=== PATIENT | male | born 1995 | race Hispanic/Latino ===

== ENCOUNTER 2017-10-07 22:43 | Emergency (ER) | payer SELFPAY ==
[2017-10-08] MEDS ORDERED: PHENYLEPHRINE 0.5% NOSE 15ML NAS ONE (00:34)
[2017-10-08] MEDS ORDERED: SILVER NITRATE 1 APPL TOP ONE (00:47)
--- NOTE | 2017-10-08 01:31 | ER ---
Nurse's Notes [facility] Name: Mesfin Vanegas III Age: 21 yrs Sex: Male : 1995 Arrival Date: 10/07/2017 Time: 22:51 Bed 10 Private MD: Diagnosis: Epistaxis Presentation: 10/07 23:13 Presenting complaint: Patient states: MY NOSE BLED FOR TWENTY MINUTES YESTERDAY AND FOR bp LIKE AN HOUR TODAY. Transition of care: patient was not received from another setting of care. Onset of symptoms was October 06, 2017. Risk Assessment: Do you want to hurt yourself or someone else? Patient reports no desire to harm self or others. Initial Sepsis Screen: Does the patient meet any 2 criteria? No. Patient's initial sepsis screen is negative. Does the patient have a suspected source of infection? No. Patient's initial sepsis screen is negative. Note BLEEDING NOW RESOLVED. Care prior to arrival: None. 23:13 Method Of Arrival: Ambulatory bp 23:13 Acuity: LOBITO 5 bp Triage Assessment: 23:14 General: Appears in no apparent distress. comfortable, Behavior is calm, cooperative, bp appropriate for age. Pain: Denies pain. Historical: - Allergies: 23:14 No Known Allergies; bp - Home Meds: 23:14 None [Active]; bp - PMHx: 23:14 None; bp - Immunization history:: Adult Immunizations up to date. - Social history:: Smoking status: Patient uses tobacco products, denies chronic smoking, but will smoke occasionally, Patient uses alcohol, occasionally. - Ebola Screening: : Patient negative for fever greater than or equal to 101.5 degrees Fahrenheit, and additional compatible Ebola Virus Disease symptoms Patient denies exposure to infectious person Patient denies travel to an Ebola-affected area in the 21 days before illness onset No symptoms or risks identified at this time. Screenin/01 00:06 Abuse screen: Denies threats or abuse. Denies injuries from another. Nutritional bp screening: No deficits noted. Tuberculosis screening: No symptoms or risk factors identified. Fall Risk None identified. Assessment: 00:03 Reassessment: 21YO HM P/W INTERMITTENT EPISTAXIS SINCE Y/D. REPORTS TWO OCCURRENCES, bp RESOLVED AT THIS TIME. 01:32 Reassessment: PT D/C HOME AMBULATORY WITH FAMILY, DX WITH EPISTAXIS. bp Vital Signs: 10/07 23:14 BP 144 / 86; Pulse 67; Resp 14; Temp 97.2; Pulse Ox 99% ; Weight 68.04 kg; Height 5 ft. bp 3 in. (160.02 cm); 10/08 01:29 BP 137 / 79; Pulse 65; Resp 14; Pulse Ox 99% ; bp 10/07 23:14 Body Mass Index 26.57 (68.04 kg, 160.02 cm) bp ED Course: 10/07 22:51 Patient arrived in ED. es 23:14 Triage completed. bp 23:14 Arm band placed on. bp 23:35 Juliette Denton NP is PHCP. rh1 23:35 Landry Soto MD is Attending Physician. rh1 23:51 Remy Tomas, RN is Primary Nurse. bp 10/08 00:06 Patient has correct armband on for positive identification. Bed in low position. Call bp light in reach. Adult w/ patient. 01:29 No provider procedures requiring assistance completed. Patient did not have IV access bp during this emergency room visit. 01:30 Sophia Miranda MD is Referral Physician. rh1 Administered Medications: 01:31 Drug: Dixon-Synephrine [place] 0.5 % 1 sprays {Note: AT B/S FOR PROVIDER.} Route: bp Intranasal; Site: both nares; 01:32 Follow up: Response: Marked relief of symptoms bp Outcome: 01:30 Discharge ordered by . rh1 01:33 Discharged to home ambulatory, with family. bp 01:33 Condition: stable 01:33 Discharge instructions given to patient, family, Instructed on discharge instructions, follow up and referral plans. medication usage, Demonstrated understanding of instructions, follow-up care, medications. 01:50 Patient left the ED. bp Signatures: Farrah Glaser Rachel, JOSE LUIS L[employer] CUTTER rh1 Remy Tomas, RN RN bp
--- NOTE | 2017-10-08 01:31 | EDPHYS ---
Physician Documentation [facility] Name: Mesfin Vanegas III Age: 21 yrs Sex: Male : 1995 Arrival Date: 10/07/2017 Time: 22:51 Bed 10 Private MD: ED Physician Landry Soto HPI: 10/07 23:53 This 21 yrs old Male presents to ER via Ambulatory with complaints of Nose rh1 Bleed. 23:53 The patient presents with a nose bleed, that is apparently anterior, from both nares, rh1 occurred from an unknown cause, that is continuous moderate amount with clots, causative factors include: unknown, and the bleeding resolved prior to arrival. Onset: The symptoms/episode began/occurred today. Modifying factors: The symptoms are alleviated by pressure, the symptoms are aggravated by nothing. Associated signs and symptoms: Loss of consciousness: the patient experienced no loss of consciousness, Pertinent negatives: blurred vision, chest pain, fever, lightheadedness, rhinorrhea. Severity of symptoms: At their worst the symptoms were moderate in the emergency department the symptoms have improved. The patient has not experienced similar symptoms in the past. The patient has not recently seen a physician. Pt. reports he has had nosebleeds x 2 today. Initially began at right, and then both sides had bleeding. This am episode resolved with pressure, after approx. 20 min, and this evening resolved in approx. 1 hour, with pressure. Denies any other episodes of bleeding, denies easy bleeding. He did have facial trauma approx. 3 months ago in [place], "with broken bones in his face.". Historical: - Allergies: 23:14 No Known Allergies; bp - Home Meds: 23:14 None [Active]; bp - PMHx: 23:14 None; bp - Immunization history:: Adult Immunizations up to date. - Social history:: Smoking status: Patient uses tobacco products, denies chronic smoking, but will smoke occasionally, Patient uses alcohol, occasionally. - Ebola Screening: : Patient negative for fever greater than or equal to 101.5 degrees Fahrenheit, and additional compatible Ebola Virus Disease symptoms Patient denies exposure to infectious person Patient denies travel to an Ebola-affected area in the 21 days before illness onset No symptoms or risks identified at this time. ROS: 23:53 Constitutional: Negative for fever rh1 23:53 ENT: Positive for nose bleed, Negative for nasal discharge, rhinorrhea, sinus congestion. 23:53 Abdomen/GI: Negative for nausea and vomiting. 23:53 Skin: Negative for pallor. 23:53 Neuro: Negative for headache, syncope, near syncope. Exam: 23:53 Constitutional: This is a well developed, well nourished patient who is awake, alert, rh1 and in no acute distress. Head/Face: Normocephalic, atraumatic. 23:53 Chest/axilla: Normal chest wall appearance and motion. Nontender with no deformity. No lesions are appreciated. Cardiovascular: Regular rate and rhythm with a normal S1 and S2. No gallops, murmurs, or rubs. No JVD. No pulse deficits. Respiratory: Lungs have equal breath sounds bilaterally, clear to auscultation. No rales, rhonchi or wheezes noted. No increased work of breathing. Abdomen/GI: Soft, non-tender, with normal bowel sounds. No distension. No guarding or rebound. No evidence of tenderness throughout. Skin: Warm, dry with normal turgor. Normal color with no rashes, no lesions, and no evidence of cellulitis. 23:53 Eyes: Pupils: no acute changes, normal size, normal reaction to light, equal, right pupil is approximately 3 mm(s), left pupil is approximately 3 mm(s), Extraocular movements: intact throughout. 23:53 ENT: External ear(s): are unremarkable, no pain with movement, Ear canal(s): are normal, clear, no cerumen impaction, no erythema, no foreign body, no purulent discharge, no swelling, TM's: are normal, no evidence of bulging, no dullness, no erythema, no fluid levels, no hemotympanum, no rupture, normal bony landmarks, Nose: External nose: no obvious acute abnormality, with swelling, deformity, Nasal septum: is midline, superficial vessels bilaterally, right > left , Nasal mucosa: dry, erythematous, Turbinates: are swollen bilaterally, bleeding, no active bleeding at this time. Mouth: is normal, no lip abnormalities, no mucosal abnormalities, Posterior pharynx: is normal, airway is patent, no erythema, no exudate, no peritonsilar mass, no pooling of secretions, no swelling, normal tonsil apperance, normal sized tonsils, normal uvula appearance, normal uvula size, no bleeding noted. 23:53 Neuro: Orientation: is normal, to person, place \\T\\ time. Mentation: is normal, lucid, able to follow commands, Motor: is normal, moves all fours, strength is 5/5 in all extremities, Sensation: is normal, no obvious gross deficits, Gait: is steady, at a normal pace, without difficulty. Vital Signs: 23:14 BP 144 / 86; Pulse 67; Resp 14; Temp 97.2; Pulse Ox 99% ; Weight 68.04 kg; Height 5 ft. bp 3 in. (160.02 cm); 10/08 01:29 BP 137 / 79; Pulse 65; Resp 14; Pulse Ox 99% ; bp 10/07 23:14 Body Mass Index 26.57 (68.04 kg, 160.02 cm) bp Procedures: 10/07 23:53 Epistaxis treatment: A moderate amount of bleeding noted from Treated using with rh1 initial examination no active bleeding noted; upon clearing bloody mucous from right nare, superficial vessels at septum began bleeding; Dixon-Synephrine nasal spray into nares, and direct pressure applied for 15 minutes, and no further bleeding noted; right septum cauterized without complication. MDM: 23:53 Patient medically screened. [facility] 10/08 01:30 Data reviewed: vital signs, nurses notes, and as a result, I will discharge patient. rh1 Data interpreted: Pulse oximetry: on room air is 99 %. Interpretation: normal. Counseling: I had a detailed discussion with the patient and/or guardian regarding: the historical points, exam findings, and any diagnostic results supporting the discharge/admit diagnosis, the need for outpatient follow up, an ENT specialist, to return to the emergency department if symptoms worsen or persist or if there are any questions or concerns that arise at home. Administered Medications: 01:31 Drug: Dixon-Synephrine [place] 0.5 % 1 sprays {Note: AT B/S FOR PROVIDER.} Route: bp Intranasal; Site: both nares; 01:32 Follow up: Response: Marked relief of symptoms bp Disposition: 10/08/17 01:30 Discharged to Home. Impression: Epistaxis. - Condition is Stable. - Discharge Instructions: Nosebleed. - Medication Reconciliation Form, Thank You Letter, Antibiotic Education, Prescription Opioid Use form. - Follow up: Sophia Miranda MD; When: 10 - 14 days; Reason: If symptoms return, Further diagnostic work-up, Recheck today's complaints, Continuance of care. Follow up: Emergency Department; When: As needed; Reason: Fever > 102 F, If symptoms return, Trouble breathing, Worsening of condition. - Problem is new. - Symptoms are resolved. - Notes: 1. Sneeze with your mouth open. 2. Avoid lifting heavy objects, straining. 3. Apply nasal saline spray to nose every 2 hours while awake x 2 weeks. 4. Apply antibiotic ointment to both sides of nose 2 - 3 times daily. 5. If you have a nosebleed, apply direct pressure for 10 minutes. It is ok to use nasal decongestant sprays, like afrin, or neosynepherine, and then apply pressure to nose. 6. If the nosebleed does not stop after those interventions, seek medical attention in the ER. Addendum: 10/09/2017 08:50 Co-signature as Attending Physician, Landry Soto MD I agree with the assessment and c juarez plan of care. Signatures: Landry Soto MD MD cha Jones, Rachel, JOSE LUIS UNIX MANAGER [facility] Remy Tomas RN RN bp Corrections: (The following items were deleted from the chart) 10/08 01:30 10/07 23:53 ENT: External ear(s): are unremarkable, no pain with movement, Ear rh1 canal(s): are normal, clear, no cerumen impaction, no erythema, no foreign body, no purulent discharge, no swelling, TM's: are normal, no evidence of bulging, no dullness, no erythema, no fluid levels, no hemotympanum, no rupture, normal bony landmarks, Nose: External nose: no obvious acute abnormality, with swelling, deformity, Nasal septum: is midline, superficial vessels bilaterally, right > left , Nasal mucosa: dry, erythematous, Turbinates: are swollen bilaterally, Mouth: is normal, no lip abnormalities, no mucosal abnormalities, Posterior pharynx: is normal, airway is patent, no erythema, no exudate, no peritonsilar mass, no pooling of secretions, no swelling, normal tonsil apperance, normal sized tonsils, normal uvula appearance, normal uvula size, no bleeding noted, rh1 10/08 01:50 01:30 10/08/2017 01:30 Discharged to Home. Impression: Epistaxis. Condition is Stable. bp Forms are Medication Reconciliation Form, Thank You Letter, Antibiotic Education, Prescription Opioid Use. Follow up: Sophia Miranda; When: 10 - 14 days; Reason: If symptoms return, Further diagnostic work-up, Recheck today's complaints, Continuance of care. Follow up: Emergency Department; When: As needed; Reason: Fever > 102 F, If symptoms return, Trouble breathing, Worsening of condition. Problem is new. Symptoms are resolved. rh1
== END 2017-10-08 01:50 | disposition home or self-care (01) ==
LOC: ER 22:43
DX: R04.0 Epistaxis (principal); Z72.0 Tobacco use
CPT/HCPCS: 99283